=== PATIENT | male | born 2000 | race Caucasian/White ===

== ENCOUNTER 2023-10-01 01:34 | Emergency (ER) | payer OTHER, SELFPAY ==
[2023-10-01 01:48] VITALS: BP 112/77; PULSE 88; RESP 18; TEMP 36.3; O2SAT 98; BMI 20.8
--- NOTE | 2023-10-01 01:55 | ED.ABDPAIN ---
HPI - Abdominal Pain General Chief Complaint: Abdominal Pain Stated Complaint: nausea and abdominal pain Time Seen by Provider: 10/01/23 01:51 History of Present Illness HPI narrative: Patient is otherwise healthy 23-year-old gentleman who had the abrupt onset of nausea vomiting diarrhea earlier tonight. He has no blood in his vomitus or bowel movement. He has no significant abdominal pain except for from the retching. He has otherwise been feeling well and has been in his usual state of health. No one else is sick. He has had no fevers no chills no night sweats no chest pain no shortness of breath. And Related Data Allergies Allergy/AdvReac Type Severity Reaction Status Date / Time bacitracin Allergy Verified 10/01/23 01:52 [From Neosporin Plus PainRelief(kennedy)] neomycin Allergy Verified 10/01/23 01:52 [From Neosporin Plus PainRelief(kennedy)] polymyxin B Allergy Verified 10/01/23 01:52 [From Neosporin Plus PainRelief(kennedy)] pramoxine Allergy Verified 10/01/23 01:52 [From Neosporin Plus PainRelief(kennedy)] Review of Systems Status of ROS Reports: 10 or more systems reviewed and unremarkable except as noted in History and below Exam Narrative: Exam Narrative: EXAM GENERAL: Patient appears comfortable and well. EYES: No scleral icterus. LYMPH: No supraclavicular or cervical lymphadenopathy. SKIN: Visible skin seen during exam normal or with benign process only. EXT: No dependent lower extremity pedal edema. HEART: Regular rate and rhythm with no murmurs, rubs, or gallops. LUNGS: Clear to auscultation bilaterally with no crackles or wheezes. ABD: Soft, non tender, non distended. PSYCH: Good eye contact, speech is not pressured. Const: Vital Signs, click to edit/add: Vital Signs - 24 hr 10/01/23 01:48 Temperature 97.4 F L Pulse Rate [Pulse Oximeter] 88 Respiratory Rate 18 Blood Pressure [Ri ght Upper Arm] 112/77 Pulse Oximetry 98 Oxygen Delivery Me thod Room Air Course Course ED Course: Patient seen examined. CBC CMP lactate lipase ordered. 4 mg Zofran 1 L of normal saline given. Vital Signs Vital signs: Initial Vital Signs Temperature 97.4 F L 10/01/23 01:48 Temperature Source Temporal Artery Scan 10/01/23 01:48 Pulse Rate 88 10/01/23 01:48 Respiratory Rate 18 10/01/23 01:48 Blood Pressure 112/77 10/01/23 01:48 Blood Pressure Mean 88 10/01/23 01:48 Pulse Oximetry 98 10/01/23 01:48 Oxygen Delivery Method Room Air 10/01/23 01:48 Vital Signs Temperature 97.4 F L 10/01/23 01:48 Pulse Rate 88 10/01/23 01:48 Respiratory Rate 18 10/01/23 01:48 Blood Pressure 112/77 10/01/23 01:48 Pulse Oximetry 98 10/01/23 01:48 Oxygen Delivery Method Room Air 10/01/23 01:48 Temperature 97.4 F L 10/01/23 01:48 Pulse Rate 88 10/01/23 01:48 Respiratory Rate 18 10/01/23 01:48 Blood Pressure 112/77 10/01/23 01:48 Pulse Oximetry 98 10/01/23 01:48 Oxygen Delivery Method Room Air 10/01/23 01:48 Medications Administered Medications: Generic Name Dose Route Start Last Admin Trade Name Freq PRN Reason Stop Dose Admin Sodium Chloride 1,000 mls @ 1,000 mls/hr 10/01/23 01:55 10/01/23 02:10 0.9 % Sodium Chloride 1000 Ml IV 10/01/23 02:54 1,000 mls/hr .Q1H KVNG Administration Ondansetron HCl 4 mg 10/01/23 01:55 10/01/23 02:27 Ondansetron 2 Mg/Ml Inj IVP 4 mg ONCE PRN Administration MDM - Abdominal Pain MDM Narrative Medical decision making narrative: Patient presents with nausea and vomiting. Labs reassuring. 1 L of normal saline 4 mg of IV Zofran given. Differential diagnosis includes food poisoning gastroenteritis viral syndrome. Patient we treated and released with sublingual Zofran with follow-up with his primary physician as needed. Lab Data Labs: Lab Results 10/01/23 Range/Units 02:10 WBC 14.41 H (4.50-11.00) K/uL RBC 5.67 (4.30-5.90) m/uL Hgb 16.7 (13.5-17.5) gm/dL Hct 49.8 (37.0-53.0) % MCV 88 (80-100) fL MCH 30 (26-34) pg MCHC 34 (32-36) gm/dL RDW Coeff of Darleen 11.7 (11.5-15.5) % Plt Count 183 (140-440) K/uL Neut % (Auto) 92.1 H (42.0-72.0) % Lymph % (Auto) 1.8 L (20-44) % [place] % (Auto) 5.6 (0.0-11.0) % Eos % (Auto) 0.3 (0.0-7.0) % Baso % (Auto) 0.1 (0.0-3.0) % Neut # (Auto) 13.30 H (1.7-7.0) K/uL Lymph # (Auto) 0.30 L (0.90-2.90) K/uL [place] # (Auto) 0.80 (0.00-0.90) K/UL Eos # (Auto) 0.00 (0.00-0.50) K/uL Baso # (Auto) 0.00 (0.00-0.30) K/uL Abs Immat Gran (auto) 0.00 (0.00-0.30) K/uL Imm/Tot Granulo (auto) 0.1 % Sodium 140 (135-149) mmol/L Potassium 4.9 (3.6-5.1) mmol/L Chloride 104 (96-114) mmol/L Carbon Dioxide 26 (20-32) mmol/L Anion Gap 10 (7-15) mEq/L BUN 20 (5-24) mg/dL Creatinine 0.9 (0.5-1.5) mg/dL Estimated Creat Clear 118.75 Estimated GFR 123 ml/min Glucose 128 H (60-115) mg/dL Lactate 1.4 (0.5-1.9) mmol/L Calcium 9.7 (8.4-10.6) mg/dL Total Bilirubin 1.3 (0.1-1.5) mg/dL AST 31 (12-35) U/L ALT 21 (4-50) U/L Alkaline Phosphatase 58 (40-150) U/L Total Protein 8.6 H (6.0-8.3) g/dL Albumin 5.3 H (3.3-5.0) g/dL Lipase 61 (23-300) U/L Discharge Plan Discharge Clinical Impression: Vomiting Patient Disposition: Home, Self-Care Condition: Stable Instructions: Acute Nausea and Vomiting (ED) Additional Instructions: Advance diet as tolerated Zofran as needed/directed Follow-up with primary care as needed. Activity Level: No Restrictions Discharge Diet: Regular Follow Up/Referrals: Provider,Not a Local [Primary Care Provider] - Stand Alone Forms: CoursePeer Info Instructions
[2023-10-01] MEDS: 0.9 % SODIUM CHLORIDE 1000 ml 1,000 ML IV (02:10)
[2023-10-01 02:15] LABS: Lactate* 1.4 mmol/L (0.5-1.9)
[2023-10-01 02:16] LABS: Basophils Percent Auto 0.1 % (0.0-3.0); Eosinophils Percent Auto 0.3 % (0.0-7.0); Hematocrit 49.8 % (37.0-53.0); Hemoglobin* 16.7 gm/dL (13.5-17.5); Immature Granulocytes Pct Auto 0.1 %; Lymphocytes Percent Auto 1.8 % (20-44); Mean Corpuscular HGB Conc 34 gm/dL (32-36); Mean Corpuscular Hemoglobin 30 pg (26-34); Mean Corpuscular Volume 88 fL (80-100); Monocytes Percent Auto 5.6 % (0.0-11.0); Neutrophils Percent Auto 92.1 % (42.0-72.0); Platelet Count* 183 K/uL (140-440); RDW Coefficient of Variation % 11.7 % (11.5-15.5); Red Blood Count 5.67 m/uL (4.30-5.90); White Blood Count* 14.41 K/uL (4.50-11.00)
[2023-10-01 02:17] LABS: Slide Review Reflex No
[2023-10-01] MEDS: ONDANSETRON 2 MG/ML inj 4 MG IVP (02:27)
[2023-10-01 02:30] LABS: Albumin* 5.3 g/dL (3.3-5.0)
[2023-10-01 02:31] LABS: Chloride* 104 mmol/L (96-114); Potassium* 4.9 mmol/L (3.6-5.1); Sodium* 140 mmol/L (135-149)
[2023-10-01 02:33] LABS: Anion Gap 10 mEq/L (7-15); Aspartate Amino Transferase* 31 U/L (12-35); Bilirubin Total* 1.3 mg/dL (0.1-1.5); Carbon Dioxide* 26 mmol/L (20-32); Creatinine* 0.9 mg/dL (0.5-1.5); Est. Creatinine Clearance* 118.75; Estimated Glomerular Filt Rate 123 ml/min; Lipase* 61 U/L (23-300); Total Protein* 8.6 g/dL (6.0-8.3)
[2023-10-01 02:34] LABS: Alanine Aminotransferase* 21 U/L (4-50); Alkaline Phosphatase* 58 U/L (40-150); Blood Urea Nitrogen* 20 mg/dL (5-24); Calcium* 9.7 mg/dL (8.4-10.6); Glucose* 128 mg/dL (60-115)
== END 2023-10-01 03:12 | disposition home or self-care (01) ==
PROVIDERS: Emergency Provider Internal Medicine
DX: R11.10 Vomiting, unspecified (principal)
CPT/HCPCS: 36415; 80053; 83605; 83690; 85025; 96374; 99283; J2405; J7030